=== PATIENT | male | born 1975 | race Two or more races ===

== ENCOUNTER 2023-03-23 09:21 | Emergency (ER) | payer OTHER ==
[~2023-03-23] VITALS: Ht 180.3 cm; Wt 124.7 kg
== END 2023-03-23 12:57 | disposition home or self-care (01) ==
LOC: ER 09:21
DX: G56.00 Carpal tunnel syndrome, unspecified upper limb (principal)

== ENCOUNTER 2024-05-14 19:14 | Emergency (ER) | payer OTHER ==
[~2024-05-14] VITALS: Ht 180.3 cm; Wt 108.9 kg
[2024-05-14] MEDS ORDERED: FENOFIBRATE40 MG (19:27)
[2024-05-14] MEDS ORDERED: HYDROCHLOROTH12.5 M2 (19:28)
[2024-05-14] MEDS ORDERED: IRBESARTAN-HCT1 EACH (19:28)
[2024-05-14] MEDS ORDERED: TAMSULOSIN HCL 0.4 MG CAP PO ONE (20:15)
[2024-05-14] MEDS ORDERED: KETOROLAC TROMETHAMINE 30 MG VIAL IV ONE (20:15)
[2024-05-14] MEDS ORDERED: ONDANSETRON HCL 2 MG/ML VIAL IV ONE (20:15)
[2024-05-14 20:54] LABS: HEMATOCRIT 47.8 % (39.0-48.0); HEMOGLOBIN 16.4 g/dL (13-16.00); MEAN CELL VOLUME 85.2 fL (80.0-100.00); MEAN CORPUSCULAR HEMOGLOBIN 29.3 pg (27.00-32.0); MEAN CORPUSCULAR HGB CONC 34.4 g/dl (32.0-36.0); PLATELET COUNT 285 K/uL (150-450); RED CELL DISTRIBUTION WIDTH 14.8 % (11.5-14.5)
[2024-05-14 21:20] LABS: CALCIUM 11.3 mg/dL (8.5-10.1); CREATININE SERUM 2.49 mg/dL (0.70-1.30); GFR 27.71; POTASSIUM 3.66 mEq/L (3.5-5.1)
[2024-05-14 21:50] LABS: PH,URINE 5.5 (5.0-8.0); URINE APPEARANCE Clear; URINE BILIRRUBIN Negative (NEGATIVE); URINE BLOOD Large; URINE COLOR Dark Yellow; URINE GLUCOSE Negative (NEGATIVE); URINE KETONE Negative (NEGATIVE); URINE LEUKOCYTE Trace; URINE NITRATE Positive; URINE PROTEIN 30 (NEGATIVE)
[2024-05-14 21:54] LABS: URINE BACTERIA 18.8 uL (0.0-1933); URINE EPITHELIAL CELLS 9.7 uL (0.0-38.8); URINE RBC 574.2 uL (0.0-20.8); URINE WBC 21.4 uL (0.0-23.2)
[2024-05-14] MEDS ORDERED: 0.9 % SODIUM CHLORIDE 500 ML IV ONE ×2 (22:15→22:30)
[2024-05-14] MEDS ORDERED: CEFTRIAXONE SODIUM 2,000 MG VIAL IV ONE (22:15)
[2024-05-14] MEDS ORDERED: 0.9 % SODIUM CHLORIDE 1,000 ML IV ONE (22:30)
[2024-05-15 07:14] LABS: CALCIUM 10.4 mg/dL (8.5-10.1); CREATININE SERUM 1.76 mg/dL (0.70-1.30); GFR 41.36; POTASSIUM 3.85 mEq/L (3.5-5.1)
== END 2024-05-15 07:41 | disposition designated cancer center or children's hospital (05) ==
LOC: ER 19:16
PROVIDERS: Nurse Practitioner Family
DX: N20.1 Calculus of ureter (principal); R16.1 Splenomegaly, not elsewhere classified; K76.0 Fatty (change of) liver, not elsewhere classified